=== PATIENT | female | born 1965 | race African-American/Black ===

== ENCOUNTER → 2018-01-29 | Outpatient (CLI) | payer OTHER ==
[~2018-01-29] MED LIST: ALEVE220 MG PO; CARVEDILOL12.5 MG PO; CELEXA20 MG PO; GABAPENTIN PO; HYDROCODONE-ACE15 ML PO; JANUMET 50-1,01 EACH PO; LEVEMIR SUBQ; LISINOPRIL PO; METFORMIN HCL500 MG PO; NEURONTIN250 MG/5 M PO; NORVASC5 MG PO; NOVOLOG100 UNIT/1 SUBQ; PLAVIX 75 MG TA75 M1 PO
== END ==
LOC: RAD 07:04
DX: K21.9 Gastro-esophageal reflux disease without esophagitis (principal)

== ENCOUNTER 2019-10-04 15:38 | Emergency (ER) | payer OTHER ==
[~2019-10-04] VITALS: Ht 149.9 cm; Wt 65.8 kg
[2019-10-04] MEDS ORDERED: NAPROSYN500 MG PO (16:19)
[2019-10-04 16:30] VITALS: BP 149/99
== END 2019-10-04 16:35 | disposition home or self-care (01) ==
LOC: ER 15:38
DX: M70.61 Trochanteric bursitis, right hip (principal); E11.9 Type 2 diabetes mellitus without complications; I10 Essential (primary) hypertension; G47.30 Sleep apnea, unspecified; Z88.5 Allergy status to narcotic agent; Z91.040 Latex allergy status; Z85.41 Personal history of malignant neoplasm of cervix uteri; Y93.89 Activity, other specified